=== PATIENT | female | born 1985 | race African-American/Black ===

== ENCOUNTER → 2018-10-13 | Day surgery (SDC) | payer BC, OTHER ==
[2018-10-11 15:11] VITALS: BMI 33.5
[~2018-10-13] MED LIST: ACETAMINOPHEN 325 MG TABLET (FP) PO PRN; IBUPROFEN 800 MG/8 ML IJ IVPB PRN; LACTATED RINGERS SOLUTION 1,000 ML IV SCH; MIDAZOLAM HCL 2 MG/2 ML SINGLE DOSE VIAL ONE; ONDANSETRON 4 MG/2 ML VIAL IVPUSH PRN; PROMETHAZINE HCL 25 MG/1 ML VIAL IVPUSH PRN; PROPOFOL 20 ML ONE; SUCCINYLCHOLINE CHLORIDE 200 MG/10 ML VIAL ONE; oxyCODONE HCL 5 MG TABLET PO PRN
--- NOTE | 2018-10-13 10:10 | HP ---
History & Physical Update - History History: No Change - Physical Physical: No Change - Assessment Assessment: No Change - Plan Plan: No Change (Agree with H&P from 10/12/18 - for hysteroscopic myomectomy for submucosal fibroid)
--- NOTE | 2018-10-13 15:02 | OP ---
Operative Note - Note: Operative Date: 10/13/18 Pre-Operative Diagnosis: submucosal leiomyoma Operation: hysteroscopic myomectomy, suction D&C Post-Operative Diagnosis: Same as Pre-op Surgeon: Sonya Jenkins Anesthesiologist/AUCTION BLOCK CLERK: Blank Gacria MD Anesthesia: MAC Specimens Removed: uterine fibroid, endometrial curettings Estimated Blood Loss (mls): 5 Operative Report Dictated: Yes
[2018-10-13 16:16] VITALS: BP 139/82; PULSE 89; TEMP 97.9
--- NOTE | 2018-10-15 09:45 | OP ---
DATE OF OPERATION: 10/13/2018 PREOPERATIVE DIAGNOSIS: Submucosal uterine fibroid. POSTOPERATIVE DIAGNOSIS: Submucosal uterine fibroid. PROCEDURE: Hysteroscopic myomectomy, suction dilatation and curettage. SURGEON: Sonya Jenkins MD ANESTHESIA: MAC. ANESTHESIOLOGIST: Blank Garcia MD. COMPLICATIONS: None. SPECIMENS REMOVED: Uterine fibroid and endometrial curettings. ESTIMATED BLOOD LOSS: 5 mL. COUNTS: Sponge, needle, and instrument counts correct. DISPOSITION: Stable to PACU. BRIEF HISTORY AND PROCEDURE: Patient is a 33-year-old female who had been seen in the office, and on ultrasound examination was found to have a submucosal uterine fibroid. The patient was counseled on her options and elected to undergo hysteroscopic resection of the fibroid. Patient signed consents for the procedure in the office. She was then admitted to [facility] on October 13, 2018, where consents were reconfirmed. Patient was taken to the operating room, given MAC anesthesia, and placed in the dorsal lithotomy position. A hard time-out was performed. She was prepped and draped in the usual sterile fashion. A speculum was placed inside the vagina, and the anterior lip of the cervix was grasped with a tenaculum, and the cervix was dilated to accommodate an operative hysteroscope, which was advanced to the fundus of the uterus. An approximately 2-cm fundal uterine fibroid was appreciated and resected in several passes with the Versapoint bipolar cautery device. This was done without difficulty. Suction dilatation and curettage was then performed to remove all the uterine fibroid fragments. One final look with the camera revealed no evidence of uterine perforation or trauma. All instruments were then removed from the vagina. Sponge and instrument counts were reported to be correct. The patient was awoken from anesthesia, recovering in stable condition in the PACU after the procedure. SONYA JENKINS DO /[id number]
--- NOTE | 2018-10-15 20:48 | PATH ---
Surgical Pathology Report Patient Name: MARJORIE SMALLWOOD [facility]. Rec. #: [id number] /Age/Gender: 1985 (Age: 33) / F Account: [id number] Location: [facility] SURGICAL Taken: 10/13/2018 Received: 10/13/2018 Reported: 10/15/2018 Physicians: Sonya Jenkins M.D. Specimen(s) Received UTERINE FIBROIDS Clinical History Fibroids Final Diagnosis FIBROID, HYSTEROSCOPIC MYOMECTOMY AND SUCTION DILATION AND CURETTAGE: 5G FRAGMENTS OF LEIOMYOMA, SECRETORY ENDOMETRIUM, AND BENIGN CERVICAL SQUAMOUS MUCOSA. Electronically Signed Therese Dotson M.D. Gross Description Received in formalin labeled "fibroid," is a 5 g, 6.5 x 4.0 x 0.4 cm aggregate of multiple elizondo, irregular, firm to rubbery tissue fragments admixed with soft tissue and blood clot. The specimen is entirely submitted in 5 cassettes. /10/14/2018 saudi10/14/2018
== END | disposition home or self-care (01) ==
LOC: JASU-SURG 05:18 → EDBD 13:30
PROVIDERS: ATTEND Obstetrics & Gynecology
PROC: 0UJD8ZZ Inspection of Uterus and Cervix, Via Natural or Artificial Opening Endoscopic (ICD-10-PCS; 2018-10-13)
PROC: 0UB98ZZ Excision of Uterus, Via Natural or Artificial Opening Endoscopic (ICD-10-PCS; principal; 2018-10-13 11:30)
PROC: 0UDB7ZX Extraction of Endometrium, Via Natural or Artificial Opening, Diagnostic (ICD-10-PCS; 2018-10-13 11:30)
DX: D25.0 Submucous leiomyoma of uterus (principal)
CPT/HCPCS: 86900; 88305-TC; 94760